=== PATIENT | male | born 1950 | race Caucasian/White ===

== ENCOUNTER → 2018-09-17 | Outpatient (CLI) | payer OTHER | LOC: RAD 13:39 | DX: S42.002A Fracture of unspecified part of left clavicle, initial encounter for closed fracture (principal); S22.32XA Fracture of one rib, left side, initial encounter for closed fracture; J90 Pleural effusion, not elsewhere classified ==

== ENCOUNTER 2018-11-30 15:00 | Outpatient (RCR) | payer OTHER | END 2018-11-30 15:30 | LOC: PT 15:00 | DX: S42.002A Fracture of unspecified part of left clavicle, initial encounter for closed fracture (principal); S42.102A Fracture of unspecified part of scapula, left shoulder, initial encounter for closed fracture ==

== ENCOUNTER 2019-04-05 10:00 | Outpatient (RCR) | payer OTHER | END 2019-04-27 | disposition still patient (30) | LOC: PT | DX: Z98.890 Other specified postprocedural states (principal) ==

== ENCOUNTER 2021-07-01 17:13 | Emergency (ER) | payer MEDICARE ==
[~2021-07-01] VITALS: Ht 180.3 cm; Wt 59.5 kg
[2021-07-01] MEDS ORDERED: GLUCOPHAGE PO (17:32)
[2021-07-01] MEDS ORDERED: WARFARIN SODIU7.5 MG PO (17:33)
[2021-07-01] MEDS ORDERED: GOOD SENSE ASPI81 M1 PO (17:33)
[2021-07-01] MEDS ORDERED: HYTRIN 1MG C1 MG/CAP PO (17:34)
[2021-07-01] MEDS ORDERED: FLECAINIDE ACET50 MG PO (17:35)
[2021-07-01] MEDS ORDERED: BENADRYL ALLERG25 M2 (17:36)
[2021-07-01] MEDS ORDERED: CARDIZEM120 M1 PO (17:36)
[2021-07-01] MEDS ORDERED: TRELEGY ELLIPT1 EACH IH (17:37)
[2021-07-01] MEDS ORDERED: COZAAR25 M1 PO (17:37)
[2021-07-01 17:54] LABS: BASO # 0.03 K/mm3 (0.02-0.10); EOS # 0.03 K/mm3 (0.04-0.40); EOS % 0.1 % (0.0-4.0); HEMATOCRIT 21.1 % (42.0-52.0); LYMPH# 3.37 K/mm3 (1.50-4.00); MEAN CELL VOLUME 107 fl (78-100); MEAN CORPUSCULAR HEMOGLOBIN 34 pg (27-31); MEAN CORPUSCULAR HGB CONC 32 g/dL (33-37); MEAN PLATELET VOLUME 9.7 fl (7.4-10.4); MONO # 1.46 K/mm3 (0.20-0.80); NEU # 21.29 K/mm3 (1.40-6.50); PLATELET COUNT 711 K/mm3 (130-400); RED CELL DISTRIBUTION WIDTH 13.6 % (11.5-14.5)
[2021-07-01 18:10] LABS: ALBUMIN 3.2 g/dL (3.4-4.8); POTASSIUM 4.1 mmol/L (3.5-5.1)
[2021-07-01 18:13] LABS: TOTAL PROTEIN 6.8 g/dL (6.2-8.1)
[2021-07-01 18:14] LABS: PARTIAL THROMBOPLASTIN TIME 94.2 SECONDS (21.0-32.0); TOTAL BILIRUBIN 0.3 mg/dL (0.2-1.2)
[2021-07-01 18:20] LABS: RED BLOOD COUNT 1.98 M/mm3 (4.20-5.60)
[2021-07-01 18:22] LABS: HEMOGLOBIN 6.8 g/dL (13.5-18.0)
[2021-07-01 20:15] LABS: URINE APPEARANCE CLEAR; URINE BILIRUBIN NEGATIVE (NEGATIVE); URINE BLOOD NEGATIVE (NEGATIVE); URINE COLOR YELLOW; URINE GLUCOSE NEGATIVE (NEGATIVE); URINE KETONE NEGATIVE (NEGATIVE); URINE LEUKOCYTE ESTERASE NEGATIVE (NEGATIVE); URINE NITRATE NEGATIVE (NEGATIVE); URINE PROTEIN(semi-quant) TRACE (NEGATIVE); URINE UROBILINOGEN NORMAL (NORMAL)
[2021-07-01 20:16] LABS: URINE MUCUS PRESENT (NOT PRESENT)
[2021-07-01 20:24] LABS: LYMPHOCYTE 17 % (20-51); MONOCYTE 6 % (3-10); NEUTROPHILS 75 % (42-75); TEAR DROP CELLS 1+
[2021-07-01 21:35] LABS: PROTHROMBIN TIME 21.7 SECONDS (9.0-12.0)
[2021-07-01 22:02] VITALS: BP 110/65
[2021-07-03 11:06] LABS: PROTHROMBIN TIME > 120.0 SECONDS (9.0-12.0)
== END 2021-07-01 22:02 | disposition short-term general hospital (02) ==
LOC: ED 17:13
PROVIDERS: Nurse Practitioner
DX: K92.2 Gastrointestinal hemorrhage, unspecified (principal); J18.9 Pneumonia, unspecified organism; R79.0 Abnormal level of blood mineral; I48.91 Unspecified atrial fibrillation; F17.210 Nicotine dependence, cigarettes, uncomplicated; Z20.822 Contact with and (suspected) exposure to COVID-19; Z79.01 Long term (current) use of anticoagulants
CPT/HCPCS: C9113; J0456; J0696; J3430; J7030; J7050; J7168; Q9967